=== PATIENT | male | born 1995 | race Caucasian/White ===

== ENCOUNTER 2018-08-24 12:27 | Emergency (ER) | payer OTHER ==
[2018-08-24 12:42] VITALS: BP 143/87
[2018-08-24] MEDS ORDERED: NS 1,000 ML IV ONE (13:02)
--- NOTE | 2018-08-24 13:07 | EDPHY ---
H & P Stated Complaint: syncopal episode witnessed at school--no trauma Time Seen by Provider: 08/24/18 12:55 HPI/ROS: CHIEF COMPLAINT: Syncope with convulsions HISTORY OF PRESENT ILLNESS: The patient is a 22-year-old man who was walking with his mom on campus when mom states that he suddenly started to slur his words and then fainted into her arms. She laid him on the ground and he had few tremors and some foam from his mouth. She states that this lasted for about a minute and then resolved quickly. He is able to ambulate and answer questions appropriately. He did not hit his head or fall or injure himself. He denies recent fevers or illness. No seizure history. Mom initially thought that this was a seizure. Dad states that this patient has been under lot of stress lately with school and recent DUI arrest. Also the patient states that he has not eaten much other than a banana in the last day or 2. He has been drinking water. He denies alcoholism or withdraw from alcohol or benzos. He does not take any medications. He denies recent drug or alcohol use. No headache. No chest pain or palpitations. Severity: Severe Modifying factors: Resolving with time REVIEW OF SYSTEMS: Constitutional: denies: chills, fever, recent illness, recent injury EENTM: denies: blurred vision, double vision, nose congestion Respiratory: denies: cough, shortness of breath Cardiac: denies: chest pain, irregular heart rate, palpitations Gastrointestinal/Abdominal: denies: abdominal pain, diarrhea, nausea, vomiting, blood streaked stools Genitourinary: denies: dysuria, frequency, hematuria, pain Musculoskeletal: denies: joint pain, muscle pain Skin: denies: lesions, rash, jaundice, bruising Neurological: denies: headache, numbness, paresthesia, tingling, dizziness, weakness Hematologic/Lymphatic: denies: blood clots, easy bleeding, easy bruising Immunologic/allergic: denies: HIV/AIDS, transplant 10 systems reviewed and negative except as noted EXAM: GENERAL: Well-appearing, well-nourished and in no acute distress. HEAD: Atraumatic, normocephalic. EYES: Pupils equal round and reactive to light, extraocular movements intact, sclera anicteric, conjunctiva are normal. ENT: TMs normal, nares patent, oropharynx clear without exudates. Moist mucous membranes. NECK: Normal range of motion, supple without lymphadenopathy or JVD. LUNGS: Breath sounds clear to auscultation bilaterally and equal. No wheezes rales or rhonchi. HEART: Regular rate and rhythm without murmurs, rubs or gallops. ABDOMEN: Soft, nontender, normoactive bowel sounds. No guarding, no rebound. No masses appreciated. BACK: No CVA tenderness, no spinal tenderness, step-offs or deformities EXTREMITIES: Normal range of motion, no pitting or edema. No clubbing or cyanosis. NEUROLOGICAL: Cranial nerves II through XII grossly intact. Normal speech, normal gait. 5/5 strength, normal movement in all extremities, normal sensation , normal reflexes PSYCH: Normal mood, normal affect. SKIN: Warm, dry, normal turgor, no visible rashes or lesions. Source: Patient, EMS Exam Limitations: No limitations - Medical/Surgical History Hx Asthma: No Hx Chronic Respiratory Disease: No Hx Diabetes: No Hx Cardiac Disease: No Hx Renal Disease: No Hx Cirrhosis: No Hx Alcoholism: No Hx HIV/AIDS: No Hx Splenectomy or Spleen Trauma: No Other PMH: denies - Family History Significant Family History: No pertinent family hx - Social History Smoking Status: Never smoked Alcohol Use: Sober Drug Use: None Constitutional: Initial Vital Signs Temperature (C) 36.8 C 08/24/18 12:40 Heart Rate 90 08/24/18 12:40 Respiratory Rate 16 08/24/18 12:40 Blood Pressure 143/87 H 08/24/18 12:40 O2 Sat (%) 97 08/24/18 12:40 O2 Delivery Mode Room Air Allergies/Adverse Reactions: No Known Allergies Allergy (Unverified 08/24/18 12:40) Home Medications: Medication Instructions Recorded NK [No Known Home Meds] 08/24/18 Medical Decision Making - Diagnostics EKG Interpretation: An EKG obtained and was read and documented in trace view. Please see trace view for full reading and report. Sinus rhythm, no acute ischemic changes, respiratory variation Imaging Results: Imaging Impressions Head CT 08/24/18 13:36 Impression: 1. Normal CT brain without contrast. 2. Consider MRI of the brain, if there is continued clinical concern. Findings and recommendations discussed with Emergency Department physician, DARIEL BUCIO at 14:08 hour, 08/24/2018. Final report concurs with initial preliminary interpretation. Imaging: Discussed imaging studies w/ house calls nurse practitioner Radiologist ED Course/Re-evaluation: The patient is now asymptomatic. His episode sounds much more like syncope with convulsions rather than a seizure. No incontinence. No tongue biting. We will observe and treat with IV fluids and obtain chemistries. His EKG is reassuring. Patient's bicarb is significantly low signifying possible seizure. I will obtain a CT scan. 2:15 p.m. We discussed the patient's lab and imaging results. They feel reassured. Patient is currently asymptomatic. We discussed follow-up with Neurology for possible seizures. We also discussed follow up with his primary and Cardiology for possible syncopal event. At this point it is unclear. Patient parents understand agree with this plan. I advised him to return here if this happens again. Differential Diagnosis: Partial list of the Differential diagnosis considered include but were not limited to; syncope, convulsions, seizure and although unlikely based on the history and physical exam, I also considered head injury, infection. I discussed these differential diagnoses and the plan with the patient as well as the usual and expected course. The patient understands that the diagnosis is provisional and that in medicine we are not always correct and that further workup is often warranted. Usual and customary warnings were given. All of the patient's questions were answered. The patient was instructed to return to the emergency department should the symptoms at all worsen or return, otherwise to followup with the physician as we discussed. - Data Points Laboratory Results: Laboratory Results 08/24/18 12:57 08/24/18 12:57 08/24/18 08/24/18 08/24/18 12:57 12:57 12:27 WBC 9.34 10^3/uL 10^3/uL (3.80-9.50) RBC 5.36 10^6/uL 10^6/uL (4.40-6.38) Hgb 17.2 g/dL g/dL (13.7-17.5) Hct 51.1 % H % (40.0-51.0) MCV 95.3 fL fL (81.5-99.8) MCH 32.1 pg pg (27.9-34.1) MCHC 33.7 g/dL g/dL (32.4-36.7) RDW 13.6 % % (11.5-15.2) Plt Count 260 10^3/uL 10^3/uL (150-400) MPV Neut % (Auto) Lymph % (Auto) [place] % (Auto) Eos % (Auto) Baso % (Auto) Nucleat RBC Rel Count Absolute Neuts (auto) Absolute Lymphs (auto) Absolute Monos (auto) Absolute Eos (auto) Absolute Basos (auto) Absolute Nucleated RBC Immature Gran % Immature Gran # Sodium 140 mEq/L mEq/L Pending (135-145) Potassium 4.1 mEq/L mEq/L Pending (3.3-5.0) Chloride 100 mEq/L mEq/L Pending (97-110) Carbon Dioxide 11 mEq/l L mEq/l Pending (22-31) Anion Gap 29 mEq/L H mEq/L Pending (8-16) BUN 5 mg/dL L mg/dL Pending (7-23) Creatinine 1.0 mg/dL mg/dL Pending (0.7-1.3) Estimated GFR > 60 Pending Glucose 178 mg/dL H mg/dL Pending (70-100) Calcium 10.1 mg/dL mg/dL Pending (8.5-10.4) Total Bilirubin 0.9 mg/dL mg/dL (0.1-1.4) AST 44 IU/L IU/L (17-59) ALT 20 IU/L L IU/L (21-72) Alkaline Phosphatase 68 IU/L IU/L (38-126) Total Protein 8.5 g/dL H g/dL (6.3-8.2) Albumin 5.3 g/dL H g/dL (3.5-5.0) 08/24/18 12:27 WBC 9.47 10^3/uL 10^3/uL (3.80-9.50) RBC 5.39 10^6/uL 10^6/uL (4.40-6.38) Hgb 17.2 g/dL g/dL (13.7-17.5) Hct 51.9 % H % (40.0-51.0) MCV 96.3 fL fL (81.5-99.8) MCH 31.9 pg pg (27.9-34.1) MCHC 33.1 g/dL g/dL (32.4-36.7) RDW 13.8 % % (11.5-15.2) Plt Count 262 10^3/uL 10^3/uL (150-400) MPV 11.6 fL fL (8.7-11.7) Neut % (Auto) 69.7 % % (39.3-74.2) Lymph % (Auto) 18.1 % % (15.0-45.0) [place] % (Auto) 8.8 % % (4.5-13.0) Eos % (Auto) 0.3 % L % (0.6-7.6) Baso % (Auto) 0.6 % % (0.3-1.7) Nucleat RBC Rel Count 0.0 % % (0.0-0.2) Absolute Neuts (auto) 6.60 10^3/uL H 10^3/uL (1.70-6.50) Absolute Lymphs (auto) 1.71 10^3/uL 10^3/uL (1.00-3.00) Absolute Monos (auto) 0.83 10^3/uL H 10^3/uL (0.30-0.80) Absolute Eos (auto) 0.03 10^3/uL 10^3/uL (0.03-0.40) Absolute Basos (auto) 0.06 10^3/uL 10^3/uL (0.02-0.10) Absolute Nucleated RBC 0.00 10^3/uL 10^3/uL (0-0.01) Immature Gran % 2.5 % H % (0.0-1.1) Immature Gran # 0.24 10^3/uL H 10^3/uL (0.00-0.10) Sodium Potassium Chloride Carbon Dioxide Anion Gap BUN Creatinine Estimated GFR Glucose Calcium Total Bilirubin AST ALT Alkaline Phosphatase Total Protein Albumin Medications Given: Discontinued Medications Sodium Chloride (Ns) 1,000 mls @ 0 mls/hr IV EDNOW ONE; Wide Open PRN Reason: Protocol Stop: 08/24/18 13:03 Last Admin: 08/24/18 13:12 Dose: 1,000 mls Departure - Departure Disposition: Home, Routine, Self-Care Clinical Impression: Seizure Condition: Fair Instructions: New-Onset Seizure in Adults (ED) Referrals: Patient,NotPresent [Unknown] - As per Instructions Demetris Sheriff DO [Medical Doctor] - 5-7 days, call for appt. Deanna Brush MD [Medical Doctor] - 5-7 days, call for appt.
--- NOTE | 2018-08-24 13:09 | CPEKG ---
Test Reason : OPEN Blood Pressure : / mmHG Vent. Rate : 086 BPM Atrial Rate : 086 BPM P-R Int : 117 ms QRS Dur : 095 ms QT Int : 352 ms P-R-T Axes : 051 070 059 degrees QTc Int : 421 ms Sinus arrhythmia Confirmed by Fransisco Ferrer ([id number]) on 08/24/2018 1:08:34 PM Referred By: Confirmed By:Fransisco Ferrer
[2018-08-24 14:51] LABS: PLATELET COUNT 262 10^3/uL (150-400)
== END 2018-08-24 14:38 | disposition home or self-care (01) ==
DX: R56.9 Unspecified convulsions (principal); R55 Syncope and collapse; E86.9 Volume depletion, unspecified